=== PATIENT | female | born 1950 | race Caucasian/White ===

== ENCOUNTER 2017-05-10 17:53 | Inpatient (IN) | payer OTHER ==
[~2017-05-10] VITALS: Ht 157.5 cm; Wt 54.4 kg
[2017-05-10] MEDS ORDERED: ALBUTEROL SULFATE 0.083% 2.5 MG/3 ML INH IH ONE (18:59)
[2017-05-10] MEDS ORDERED: MORPHINE SULFATE 4 MG/1ML SYG ONE (20:23)
[2017-05-11] MEDS ORDERED: ACETAMINOPHEN 325 MG TAB PO PRN (02:45)
[2017-05-11] MEDS ORDERED: ACETAMINOPHEN-CODEINE 300/30MG TAB PO PRN (02:45)
[2017-05-11] MEDS ORDERED: ONDANSETRON HCL 4 MG/2 ML VIAL IV PRN (02:45)
[2017-05-11] MEDS ORDERED: HYDRALAZINE HCL 20 MG/ML VIAL IV PRN (02:45)
[2017-05-11 03:00] VITALS: BP 117/68
[2017-05-11] MEDS ORDERED: MORPHINE SULFATE 4 MG/1ML SYG IVP PRN (05:00)
[2017-05-11 08:10] VITALS: BP 139/71
[2017-05-11] MEDS: FAMOTIDINE 20MG TAB 20 MG TAB PO SCH ×2 (08:32→20:38)
[2017-05-11 11:24] VITALS: BP 117/61
[2017-05-11] MEDS ORDERED: LEVO25TA54 PO (13:12)
[2017-05-11] MEDS ORDERED: CALC560O TP (13:12)
[2017-05-11] MEDS ORDERED: ASEN5TAB8 SL (13:12)
[2017-05-11 17:00] VITALS: BP 131/79
[2017-05-11 21:04] VITALS: BP 126/78
[2017-05-11] MEDS: CEFAZOLIN SODIUM 1 GM VIAL IV SCH (21:58)
[2017-05-12] VITALS (26 sets, daily range): BP systolic 93–149; BP diastolic 42–85
[2017-05-12 05:03] LABS: HEMATOCRIT 37.8 % (36-48); MEAN CORPUSCULAR HEMOGLOBIN 31.8 pg (27.0-33.0); MEAN CORPUSCULAR HGB CONC 34.4 g/dL (32.0-36.0); MEAN CORPUSCULAR VOLUME 92.3 fL (79-99); PLATELET COUNT (AUTO) 237 K/uL (130-400); RED CELL DISTRIBUTION WIDTH 13.1 % (11.0-15.5); WHITE BLOOD COUNT (AUTO) 12.1 K/uL (4.8-10.8)
[2017-05-12 05:16] LABS: CREATININE 0.9 mg/dL (0.5-1.5); POTASSIUM 3.7 mmol/L (3.5-5.1)
[2017-05-12 05:44] LABS: INR 0.92 (0.85-1.15); PARTIAL THROMBOPLASTIN TIME 25.8 SEC (26.3-35.5); PROTHROMBIN TIME 9.7 SEC (9.6-11.6)
[2017-05-12] MEDS: CEFAZOLIN SODIUM 1 GM VIAL IV SCH ×4 (06:10→22:15)
[2017-05-12] MEDS: FAMOTIDINE 20MG TAB 20 MG TAB PO SCH ×2 (07:51→22:16)
[2017-05-12] MEDS: DEXTROSE 5 %-0.45 % NACL 1,000 ML IV SCH ×2 (09:25→22:05)
[2017-05-12] MEDS ORDERED: GLYCOPYRROLATE 0.2 MG/ML 5 ML VIAL ONE (14:03)
[2017-05-12] MEDS ORDERED: MIDAZOLAM HCL 1 MG/ML 2ML VIAL ONE (14:03)
[2017-05-12] MEDS ORDERED: SUCCINYLCHOLINE 200MG/10ML SYR ONE (14:03)
[2017-05-12] MEDS ORDERED: DEXAMETHASONE SOD PHOSPHATE 10MG/ML 1ML VIAL ONE (14:03)
[2017-05-12] MEDS ORDERED: ONDANSETRON HCL 4 MG/2 ML VIAL ONE ×2 (14:03→17:16)
[2017-05-12] MEDS ORDERED: PROPOFOL 10 MG/ML 20ML VIAL IV ONE (14:03)
[2017-05-12] MEDS ORDERED: LIDOCAINE PF 2% 5ML ABBOJECT ONE (14:03)
[2017-05-12] MEDS ORDERED: FENTANYL CITRATE PF 50 MCG/1 ML 2ML VIAL ONE ×3 (14:04→15:49)
[2017-05-13] VITALS: BP 137/66
[2017-05-13 04:00] VITALS: BP 130/71
[2017-05-13] MEDS: DEXTROSE 5 %-0.45 % NACL 1,000 ML IV SCH (05:36)
[2017-05-13] MEDS: CEFAZOLIN SODIUM 1 GM VIAL IV SCH (05:38)
[2017-05-13] MEDS ORDERED: LEVOTHYROXINE 25 MCG TABLET PO SCH (06:30)
[2017-05-13 07:42] VITALS: BP 127/60
[2017-05-13] MEDS: FAMOTIDINE 20MG TAB 20 MG TAB PO SCH (08:30)
[2017-05-13 11:28] VITALS: BP 115/50
== END 2017-05-13 15:00 | disposition home or self-care (01) | DRG 489 ==
LOC: EDH 17:53 → EDHIP 21:53 → OBSVTOIN 21:53 → 4AH 22:58
PROVIDERS: ADMIT Family Medicine; ATTEND Family Medicine
PROC: 0QSD04Z Reposition Right Patella with Internal Fixation Device, Open Approach (ICD-10-PCS; principal; 2017-05-12 15:07)
PROC: 0S9C0ZZ Drainage of Right Knee Joint, Open Approach (ICD-10-PCS; 2017-05-12 15:07)
DX: S82.001B Unspecified fracture of right patella, initial encounter for open fracture type I or II (principal); F20.9 Schizophrenia, unspecified; W01.0XXA Fall on same level from slipping, tripping and stumbling without subsequent striking against object, initial encounter; E03.9 Hypothyroidism, unspecified; L40.9 Psoriasis, unspecified; Y93.89 Activity, other specified; Y92.89 Other specified places as the place of occurrence of the external cause; Y99.8 Other external cause status; Z88.2 Allergy status to sulfonamides
CPT/HCPCS: 36415; 71045; 73560; 73562; 76000; 80048; 85027; 85610; 85730; 93005; 94640; 97039; A4218; J0330; J0690; J1100; J2001; J2250; J2270; J2405; J2704; J3010; J3490; J7030; J7042; J7120

== ENCOUNTER 2017-05-16 10:49 | Inpatient (IN) | payer OTHER ==
[~2017-05-16] VITALS: Ht 157.5 cm; Wt 54.4 kg
[2017-05-16] VITALS (17 sets, daily range): BP systolic 123–172; BP diastolic 66–87
[~2017-05-16 10:49] MED LIST: ASEN5TAB8 SL; CALC560O TP; LEVO25TA54 PO
[2017-05-16 13:55] LABS: BASOPHILS % (AUTO) 0.5 % (0.0-5.0); EOSINOPHILS % (AUTO) 0.3 % (0.0-8.0); HEMATOCRIT 34.1 % (36-48); LYMPHOCYTES % (AUTO) 14.9 % (21.0-51.0); MEAN CORPUSCULAR HEMOGLOBIN 31.4 pg (27.0-33.0); MEAN CORPUSCULAR HGB CONC 34.1 g/dL (32.0-36.0); MEAN CORPUSCULAR VOLUME 92.3 fL (79-99); MONOCYTES % (AUTO) 7.8 % (3.0-13.0); NEUTROPHILS % (AUTO) 76.5 % (40.0-77.0); PLATELET COUNT (AUTO) 347 K/uL (130-400); RED BLOOD CELL COUNT(AUTO) 3.69 MIL/uL (4.00-5.50); RED CELL DISTRIBUTION WIDTH 12.7 % (11.0-15.5); WHITE BLOOD COUNT (AUTO) 12.9 K/uL (4.8-10.8)
[2017-05-16 14:11] LABS: ALBUMIN 3.2 g/dL (3.5-5.0); CREATININE 0.8 mg/dL (0.5-1.5); INR 0.93 (0.85-1.15); PARTIAL THROMBOPLASTIN TIME 27.3 SEC (26.3-35.5); PROTHROMBIN TIME 9.8 SEC (9.6-11.6); TOTAL PROTEIN, SERUM 7.3 g/dL (6.0-8.3)
[2017-05-16 14:16] LABS: POTASSIUM 2.9 mmol/L (3.5-5.1)
[2017-05-16] MEDS: SODIUM CHLORIDE 0.9% 1000ML 1,000 ML IV SCH ×3 (14:28→23:24)
[2017-05-16] MEDS ORDERED: GUAIFENESIN-DM 200/20 MG 10 ML PO PRN (14:30)
[2017-05-16] MEDS ORDERED: ACETAMINOPHEN-CODEINE 300/30MG TAB PO PRN (14:30)
[2017-05-16] MEDS ORDERED: VANCOMYCIN 1GM+NS 250ML 250 ML IV SCH (14:30)
[2017-05-16] MEDS ORDERED: ONDANSETRON HCL 4 MG/2 ML VIAL IV PRN (14:30)
[2017-05-16] MEDS ORDERED: LACTULOSE 20 GM/30 ML UDCUP PO PRN (14:30)
[2017-05-16] MEDS ORDERED: ACETAMINOPHEN 325 MG TAB PO PRN (14:30)
[2017-05-16] MEDS ORDERED: VANCOMYCIN PROTOCOL PER PHARMACY IV PRN (14:30)
[2017-05-16] MEDS ORDERED: HYDRALAZINE HCL 20 MG/ML VIAL IV PRN (14:30)
[2017-05-16] MEDS ORDERED: POTASSIUM CHLORIDE 20MEQ/100ML 100 ML IV ONE (15:16)
[2017-05-16] MEDS ORDERED: LIDOCAINE HCL-MPF 1% 2ML VIAL ONE (16:17)
[2017-05-16] MEDS ORDERED: DEXAMETHASONE SOD PHOSPHATE 10MG/ML 1ML VIAL ONE (17:06)
[2017-05-16] MEDS ORDERED: LIDOCAINE PF 2% 5ML ABBOJECT ONE (17:06)
[2017-05-16] MEDS ORDERED: MIDAZOLAM HCL 1 MG/ML 2ML VIAL ONE (17:06)
[2017-05-16] MEDS ORDERED: PROPOFOL 10 MG/ML 20ML VIAL IV ONE (17:06)
[2017-05-16] MEDS ORDERED: GLYCOPYRROLATE 0.2 MG/ML 5 ML VIAL ONE (17:06)
[2017-05-16] MEDS ORDERED: ONDANSETRON HCL 4 MG/2 ML VIAL ONE (17:06)
[2017-05-16] MEDS ORDERED: FENTANYL CITRATE PF 50 MCG/1 ML 2ML VIAL ONE (17:07)
[2017-05-16] MEDS ORDERED: CEFAZOLIN SODIUM 1 GM VIAL ONE (17:07)
[2017-05-16] MEDS: IPRATROPIUM/ALBUTEROL SULFATE 3 ML SOLUTION IH SCH ×2 (17:48→23:09)
[2017-05-16] MEDS ORDERED: ROPIVACAINE 0.5% 5MG/ML 30ML IJ ONE (19:38)
[2017-05-16] MEDS ORDERED: MEPERIDINE-PF 50 MG/ML SYG ONE (20:15)
[2017-05-16] MEDS ORDERED: FAMOTIDINE/PF 20 MG/2 ML VIAL IV SCH (21:00)
[2017-05-16] MEDS ORDERED: NS-20 MEQ KCL 1000ML 1,000 ML IV ONE (21:43)
[2017-05-16] MEDS: MORPHINE SULFATE 2 MG/ML 1ML SYG IV PRN (21:48)
[2017-05-16] MEDS: NS-20 MEQ KCL 1000ML 1,000 ML IV SCH (21:48)
[2017-05-16] MEDS ORDERED: HYDROMORPHONE 1 MG/1 ML AMP ONE (23:42)
[2017-05-16] MEDS ORDERED: HYDROMORPHONE 1 MG/1 ML AMP IVP ONE (23:45)
[2017-05-17] VITALS (7 sets, daily range): BP systolic 122–154; BP diastolic 61–76
[2017-05-17] MEDS: CEFAZOLIN 2GM / 50 ML 50 ML IV SCH ×2 (01:00→09:00)
[2017-05-17] MEDS ORDERED: CEFAZOLIN SODIUM 1 GM VIAL ONE ×2 (01:30→09:39)
[2017-05-17] MEDS: IPRATROPIUM/ALBUTEROL SULFATE 3 ML SOLUTION IH SCH ×3 (04:51→18:59)
[2017-05-17] MEDS: LEVOTHYROXINE 25 MCG TABLET PO SCH (07:44)
[2017-05-17] MEDS ORDERED: LIDOCAINE HCL-MPF 1% 2ML VIAL IVP PRN (07:45)
[2017-05-17] MEDS ORDERED: POTASSIUM CHLORIDE 20 MEQ ERTAB PO PRN (07:45)
[2017-05-17] MEDS ORDERED: POTASSIUM CHLORIDE 10% ELIXIR 20 MEQ/15 ML UDCUP PO PRN (07:45)
[2017-05-17] MEDS ORDERED: POTASSIUM CHLORIDE 20MEQ/100ML 100 ML IV PRN (07:45)
[2017-05-17] MEDS ORDERED: VANCOMYCIN 0.75 GM in N.S. 250 ML IV SCH (08:00)
[2017-05-17] MEDS ORDERED: FAMOTIDINE 20MG TAB 20 MG TAB ONE (08:23)
[2017-05-17] MEDS: MORPHINE SULFATE 2 MG/ML 1ML SYG IV PRN (08:26)
[2017-05-17] MEDS: ENOXAPARIN SODIUM 40 MG/0.4 ML SYRINGE SQ SCH (08:27)
[2017-05-17 08:39] LABS: HEMATOCRIT 29.5 % (36-48); MEAN CORPUSCULAR HEMOGLOBIN 32.1 pg (27.0-33.0); MEAN CORPUSCULAR HGB CONC 34.8 g/dL (32.0-36.0); PLATELET COUNT (AUTO) 324 K/uL (130-400); WHITE BLOOD COUNT (AUTO) 12.4 K/uL (4.8-10.8)
[2017-05-17] MEDS: FAMOTIDINE 20MG TAB 20 MG TAB PO SCH ×2 (09:00→21:41)
[2017-05-17 09:07] LABS: CREATININE 0.8 mg/dL (0.5-1.5); POTASSIUM 3.9 mmol/L (3.5-5.1)
[2017-05-17] MEDS: NS-20 MEQ KCL 1000ML 1,000 ML IV SCH ×2 (09:45→22:30)
[2017-05-17] MEDS ORDERED: CEFAZOLIN SODIUM 1 GM VIAL IVP SCH (14:00)
[2017-05-18] VITALS: BP 149/68
[2017-05-18] MEDS: IPRATROPIUM/ALBUTEROL SULFATE 3 ML SOLUTION IH SCH ×5 (00:17→23:47)
[2017-05-18] MEDS ORDERED: CEFAZOLIN SODIUM 1 GM VIAL IVP SCH (01:00)
[2017-05-18 04:00] VITALS: BP 123/66
[2017-05-18] MEDS: LEVOTHYROXINE 25 MCG TABLET PO SCH (06:46)
[2017-05-18 08:18] VITALS: BP 120/67
[2017-05-18] MEDS: FAMOTIDINE 20MG TAB 20 MG TAB PO SCH ×2 (08:20→21:21)
[2017-05-18] MEDS: ENOXAPARIN SODIUM 40 MG/0.4 ML SYRINGE SQ SCH (08:21)
[2017-05-18 11:43] VITALS: BP 117/66
[2017-05-18 16:40] VITALS: BP 129/63
[2017-05-18 20:00] VITALS: BP 129/64
[2017-05-19] VITALS (9 sets, daily range): BP systolic 110–136; BP diastolic 52–70
[2017-05-19] MEDS: LEVOTHYROXINE 25 MCG TABLET PO SCH (06:34)
[2017-05-19] MEDS: IPRATROPIUM/ALBUTEROL SULFATE 3 ML SOLUTION IH SCH ×3 (06:46→19:18)
[2017-05-19] MEDS: ENOXAPARIN SODIUM 40 MG/0.4 ML SYRINGE SQ SCH (09:42)
[2017-05-19] MEDS: FAMOTIDINE 20MG TAB 20 MG TAB PO SCH ×2 (09:42→20:11)
[2017-05-20] MEDS: IPRATROPIUM/ALBUTEROL SULFATE 3 ML SOLUTION IH SCH ×5 (00:44→23:32)
[2017-05-20 04:59] VITALS: BP 118/57
[2017-05-20] MEDS: LEVOTHYROXINE 25 MCG TABLET PO SCH (06:32)
[2017-05-20 07:54] VITALS: BP 129/69
[2017-05-20] MEDS: FAMOTIDINE 20MG TAB 20 MG TAB PO SCH ×2 (07:55→20:27)
[2017-05-20] MEDS: ENOXAPARIN SODIUM 40 MG/0.4 ML SYRINGE SQ SCH (07:56)
[2017-05-20 11:18] VITALS: BP 111/64
[2017-05-20 17:21] VITALS: BP 130/62
[2017-05-20 20:26] VITALS: BP 129/70
[2017-05-20 23:30] VITALS: BP 136/77
[2017-05-21 05:06] VITALS: BP 125/64
[2017-05-21] MEDS: IPRATROPIUM/ALBUTEROL SULFATE 3 ML SOLUTION IH SCH ×4 (06:10→23:56)
[2017-05-21] MEDS: LEVOTHYROXINE 25 MCG TABLET PO SCH (06:26)
[2017-05-21 07:30] VITALS: BP 118/68
[2017-05-21] MEDS: FAMOTIDINE 20MG TAB 20 MG TAB PO SCH ×2 (09:22→21:23)
[2017-05-21] MEDS: ENOXAPARIN SODIUM 40 MG/0.4 ML SYRINGE SQ SCH (09:23)
[2017-05-21 11:00] VITALS: BP 106/65
[2017-05-21 16:00] VITALS: BP 112/61
[2017-05-21 19:56] VITALS: BP 129/59
[2017-05-21 23:46] VITALS: BP 125/61
[2017-05-22 04:17] VITALS: BP 127/65
[2017-05-22] MEDS: LEVOTHYROXINE 25 MCG TABLET PO SCH (05:25)
[2017-05-22] MEDS: IPRATROPIUM/ALBUTEROL SULFATE 3 ML SOLUTION IH SCH ×2 (06:50→11:10)
[2017-05-22 07:00] VITALS: BP 118/54
[2017-05-22] MEDS: FAMOTIDINE 20MG TAB 20 MG TAB PO SCH ×2 (07:39→19:42)
[2017-05-22] MEDS: ENOXAPARIN SODIUM 40 MG/0.4 ML SYRINGE SQ SCH (07:40)
[2017-05-22 11:00] VITALS: BP 100/56
[2017-05-22 15:18] VITALS: BP 127/75
[2017-05-22 20:00] VITALS: BP 119/66
[2017-05-22 23:58] VITALS: BP 120/64
[2017-05-23 04:00] VITALS: BP 118/64
[2017-05-23] MEDS: LEVOTHYROXINE 25 MCG TABLET PO SCH (04:45)
[2017-05-23 05:26] LABS: BASOPHILS % (AUTO) 1.2 % (0.0-5.0); HEMATOCRIT 30.8 % (36-48); LYMPHOCYTES % (AUTO) 17.6 % (21.0-51.0); MEAN CORPUSCULAR HEMOGLOBIN 33.6 pg (27.0-33.0); MEAN CORPUSCULAR HGB CONC 35.4 g/dL (32.0-36.0); MONOCYTES % (AUTO) 11.5 % (3.0-13.0); NEUTROPHILS % (AUTO) 67.7 % (40.0-77.0); NUCLEATED RED BLOOD CELLS 0.1 % (0.0-0.19); PLATELET COUNT (AUTO) 473 K/uL (130-400); RED BLOOD CELL COUNT(AUTO) 3.24 MIL/uL (4.00-5.50); RED CELL DISTRIBUTION WIDTH 13.5 % (11.0-15.5); WHITE BLOOD COUNT (AUTO) 11.4 K/uL (4.8-10.8)
[2017-05-23 05:32] LABS: CREATININE 0.8 mg/dL (0.5-1.5); POTASSIUM 4.1 mmol/L (3.5-5.1)
[2017-05-23 07:00] VITALS: BP 128/70
[2017-05-23] MEDS: ENOXAPARIN SODIUM 40 MG/0.4 ML SYRINGE SQ SCH (08:05)
[2017-05-23] MEDS: FAMOTIDINE 20MG TAB 20 MG TAB PO SCH ×2 (08:05→20:50)
[2017-05-23 11:14] VITALS: BP 119/61
[2017-05-23 15:09] VITALS: BP 138/53
[2017-05-23 20:00] VITALS: BP 121/64
[2017-05-24] VITALS: BP 119/65
[2017-05-24 04:00] VITALS: BP 121/63
[2017-05-24] MEDS: LEVOTHYROXINE 25 MCG TABLET PO SCH (06:34)
[2017-05-24 08:16] VITALS: BP 129/74
[2017-05-24] MEDS: FAMOTIDINE 20MG TAB 20 MG TAB PO SCH ×2 (08:56→20:35)
[2017-05-24] MEDS: ENOXAPARIN SODIUM 40 MG/0.4 ML SYRINGE SQ SCH (08:56)
[2017-05-24 11:11] VITALS: BP 114/71
[2017-05-24 17:08] VITALS: BP 137/70
[2017-05-24 19:33] VITALS: BP 126/66
[2017-05-25 00:18] VITALS: BP 125/61
[2017-05-25 04:43] VITALS: BP 113/57
[2017-05-25] MEDS: LEVOTHYROXINE 25 MCG TABLET PO SCH (06:30)
[2017-05-25 08:15] VITALS: BP 139/67
[2017-05-25] MEDS ORDERED: ENOXAPARIN SODIUM 40 MG/0.4 ML SYRINGE SQ ONE (08:15)
[2017-05-25] MEDS: FAMOTIDINE 20MG TAB 20 MG TAB PO SCH ×2 (08:32→20:31)
[2017-05-25] MEDS: ENOXAPARIN SODIUM 40 MG/0.4 ML SYRINGE SQ SCH (08:33)
[2017-05-25 12:02] VITALS: BP 113/62
[2017-05-25] MEDS ORDERED: ACET1TAB12 PO (13:34)
[2017-05-25 17:11] VITALS: BP 120/68
[2017-05-25 20:25] VITALS: BP 124/82
[2017-05-26 00:35] VITALS: BP 127/66
== END 2017-05-26 03:10 | disposition short-term general hospital (02) | DRG 496 ==
LOC: EDH 10:49 → EDHIP 14:28 → 4AH 20:52
PROVIDERS: ADMIT Family Medicine; ATTEND Family Medicine
PROC: 0QW Lower Bones, Revision (ICD-10-PCS; principal; 2017-05-16 17:10)
DX: T84.83XA Hemorrhage due to internal orthopedic prosthetic devices, implants and grafts, initial encounter (principal); E44.1 Mild protein-calorie malnutrition; W01.0XXA Fall on same level from slipping, tripping and stumbling without subsequent striking against object, initial encounter; F20.9 Schizophrenia, unspecified; E03.9 Hypothyroidism, unspecified; K59.00 Constipation, unspecified; L89.90 Pressure ulcer of unspecified site, unspecified stage; M81.0 Age-related osteoporosis without current pathological fracture; Y83.8 Other surgical procedures as the cause of abnormal reaction of the patient, or of later complication, without mention of misadventure at the time of the procedure; Y79.1 Therapeutic (nonsurgical) and rehabilitative orthopedic devices associated with adverse incidents; Y93.89 Activity, other specified; Y92.89 Other specified places as the place of occurrence of the external cause; Y99.8 Other external cause status; Z68.21 Body mass index [BMI] 21.0-21.9, adult; Z98.51 Tubal ligation status; Z88.2 Allergy status to sulfonamides
CPT/HCPCS: 36415; 73560; 73562; 80048; 80053; 83735; 84132; 85025; 85027; 85610; 85730; 86850; 86900; 86901; 87070; 87071; 87076; 87205; 94640; 94664; 97039; A4218; A4344; J0690; J1100; J1170; J1650; J2001; J2175; J2250; J2405; J2704; J2795; J3010; J3370; J3480; J3490; J7030

== ENCOUNTER 2025-03-17 14:27 | Emergency (ER) | payer OTHER ==
[~2025-03-17] VITALS: Ht 154.9 cm; Wt 56.7 kg
[~2025-03-17 14:27] MED LIST changes: +ACET1TAB12 PO
[2025-03-17 14:33] VITALS: BP 135/65; PULSE 73; RESP 20; TEMP 99; O2SAT 99
--- NOTE | 2025-03-17 14:33 | NUR ---
PATIENT IN ROOM
--- NOTE | 2025-03-17 16:22 | EKG ---
[facility] Test Date: 2025-03-17 Test Time: 16:16:18 Pat Name: AIME BETANCUR Department: 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
--- NOTE | 2025-03-17 16:42 | HMCIMG ---
EXAM CR right humerus, 3 views. CLINICAL HISTORY Pain. TECHNIQUE Multiple radiographic views of the right humerus. COMPARISON None. FINDINGS Bones There is internal plate and screw fixation across a healed fracture of the proximal humeral shaft at the level of the surgical neck, with good alignment of the fracture fragments and no evidence of hardware loosening or failure. No acute fracture or aggressive appearing osseous lesion is identified. Joints The visualized shoulder and elbow joint relationships are maintained without dislocation. The joint spaces are preserved. Soft tissues The soft tissues are unremarkable without abnormal soft tissue gas or focal swelling. IMPRESSION * Status post internal plate and screw fixation of a healed proximal humeral shaft/surgical neck fracture with good alignment and no acute hardware complication. * No acute osseous abnormality. /[place]
--- NOTE | 2025-03-17 16:43 | HMCIMG ---
EXAM CR right foot, 3 views. CLINICAL HISTORY Pain. TECHNIQUE Multiple radiographic views of the right foot. COMPARISON None. FINDINGS Bones No acute fracture or aggressive appearing osseous lesion is identified. Osseous alignment of the visualized right foot is maintained. Joints The joint spaces are preserved without significant degenerative change. No dislocation is seen. Soft tissues Soft tissue swelling is noted involving the distal leg, ankle, and foot region. Multiple lobulated calcific bodies are seen along the posterior aspect of the distal leg in the region of the Achilles tendon, compatible with calcific change or ossification within the tendo-Achilles. No radiopaque foreign body is identified. IMPRESSION * Soft tissue swelling involving the distal leg, ankle, and foot. * Multiple lobulated calcific bodies along the posterior distal leg in the region of the Achilles tendon, compatible with calcific or ossific change within the tendo-Achilles. * No acute osseous abnormality. /[place]
--- NOTE | 2025-03-17 16:44 | HMCIMG ---
EXAM CR right hip, 4 views. CLINICAL HISTORY Pain. TECHNIQUE Multiple frontal and lateral radiographs of the right hip and proximal femur. COMPARISON None. FINDINGS Bones There is an intramedullary nail with dynamic hip screw fixation traversing a healed intertrochanteric fracture of the right proximal femur, in satisfactory alignment without evidence of acute hardware complication or new fracture. No acute fracture or aggressive appearing osseous lesion is identified. Joints There is bilateral hip joint osteoarthritis, which is moderate to severe on the right and mild to moderate on the left, characterized by joint space narrowing and osteophytosis corresponding to the respective degrees of severity. No hip joint dislocation is seen. Soft tissues The soft tissues are unremarkable without abnormal soft tissue gas or focal swelling. IMPRESSION * Status post intramedullary nail and dynamic hip screw fixation of a healed right intertrochanteric femur fracture without acute hardware complication or new fracture. * Bilateral hip osteoarthritis, moderate to severe on the right and mild to moderate on the left. /[place]
--- NOTE | 2025-03-17 17:25 | ERN ---
ED Note History of Present Illness Stated Complaint: RT HIP PAIN, RT FOOT PAIN, AND LT SHOULDER PAIN Chief Complaint: Mechanical Fall Time Seen by MD: 14:29 Time Seen by Midlevel: 14:29 Dictation: The patient is a 74-year-old female with a history of cerebral palsy, right hip replacement who presents to the emergency department with complaints of right hip pain, right foot pain, left upper arm pain after an accidental trip and fall on Wednesday. Patient reports that she needed to use the bathroom but she did not want to use her walker so she used her friend's cane instead which had low stability causing her to fall. Reports she landed on her right side. Patient denies any head trauma, denies any LOC, denies any nausea or vomiting, denies any neck pain, denies any chest pain, denies any back pain, denies any other injuries from the fall. Reports that the next day she was able to ambulate but then after that she started with more pain. Patient reports she walks with a walker. Allergies: Coded Allergies: Sulfa (Sulfonamide Antibiotics) (Unverified Allergy, Unknown, 05/11/17) Home Meds Active Scripts Acetaminophen with Codeine (Tylenol with Codeine #3 Tablet) 1 Each Tablet, 1-2 TAB PO Q6H PRN for PAIN for 3 Days, TAB Prov:NAYLA HAQ [facility] 05/25/17 Reported Medications Levothyroxine Sodium (Levothyroxine Sodium) 25 Mcg Tablet, 25 MCG PO DAILY, TAB 05/11/17 Calcipotriene (Dovonex 0.005% Oint) 1 Appl/Gm Oint, 1 APPL TP AD, APPL 05/11/17 Asenapine Maleate (Saphris) 5 Mg Tab.subl, 5 MG SL BID, TAB.SL 05/11/17 Past Medical History Past Medical History: Anxiety, Arthritis, Schizophrenia, Other Additional Past Medical Hx: CEREBRAL PALSY; SCOLIOSIS Surgical History: Other RN Note Reviewed/Agreed w/PFSH: Yes Review of System Dictation Constitutional: Negative for fever,chills, and weight loss Eyes: Negative for injury, pain,redness, and discharge ENT: Negative for injury,pain or swelling Cardiovascular: Negative for chest pain, palpitations, and edema Respiratory: Negative for shortness of breath, cough, and wheezing, Abdomen/GI: Negative for abdominal pain, nausea, vomiting, diarrhea, and constipation Back: Negative for injury and pain : Negative for injury, bleeding and discharge MS/Extremity: Positive for right hip pain, left upper arm pain, right foot pain Skin: Negative for rash, and discoloration Neuro: Negative for headache, weakness, numbness, tingling, and seizure Psych: Negative for suicide ideation, homicidal ideation, and hallucinations Initial Vital Sign VS Vital Signs Date Time Temp Pulse Resp B/P (MAP) Pulse Ox O2 Delivery O2 Flow Rate FiO2 03/17/25 14:29 99.0 73 20 135/65 99 Room Air Physical Exam Dictation Vital Signs reviewed General Appearance: Alert, oriented x 3, no acute distress, well developed, nourished. Head and Face: non-traumatic. Eyes: PERRL, pink conjunctivas, eyelid no trauma, anterior chamber with arcus senilis. Ears: Pinnas intact and no signs of trauma or erythema ear canals clear and no discharge TM no erythema Nose: No discharge, no bleeding. Oropharynx: Mouth normal, tongue pink. pharynx clear,no erythema, tonsils no exudates, no abscesses noted, mucous membrane moist Neck: Supple, non-tender, no thyromegaly, no masses, no JVD, no bruits Breast:Deferred Chest:No tenderness, no crepitus, no paradoxical movement, no retractions Lungs:Clear, well-ventilated, symmetric, no rales, no wheezing, no rhonchi, no stridor, good breath sounds bilaterally Heart: Regular rate, regular rhythm, no murmur, no gallops Vascular: no peripheral edema, dorsalis pedis 3+ bilaterally Abdomen: Soft, positive bowel sounds, nondistended, no guarding, nontender, no rebound, no masses no hepatomegaly, no splenomegaly, no Lujan's sign, no hernias. Rectal: Deferred Genital: Deferred Neurological: Normal speech, motor function intact, sensory function intact Musculoskeletal: Neck nontender, full range of motion, back nontender, full range of motion, Extremities: nontender, full range of motion , slight tenderness to right hip, no contusions Skin: Color pink, dry, no turgor, no rash, no lacerations, no abrasions, no contusions. Lymphatic: Deferred Results (Laboratory/Radiology) Laboratory/Radiology REASON: pain ORDERING PHYSICIAN: REYNA NOBLES GANG MOWER OPERATOR PROCEDURE: HUM 2V LT - HUMERUS 2+VWS LT EXAM CR right humerus, 3 views. CLINICAL HISTORY Pain. TECHNIQUE Multiple radiographic views of the right humerus. COMPARISON None. FINDINGS Bones There is internal plate and screw fixation across a healed fracture of the proximal humeral shaft at the level of the surgical neck, with good alignment of the fracture fragments and no evidence of hardware loosening or failure. No acute fracture or aggressive appearing osseous lesion is identified. Joints The visualized shoulder and elbow joint relationships are maintained without dislocation. The joint spaces are preserved. Soft tissues The soft tissues are unremarkable without abnormal soft tissue gas or focal swelling. IMPRESSION * Status post internal plate and screw fixation of a healed proximal humeral shaft/surgical neck fracture with good alignment and no acute hardware complication. * No acute osseous abnormality. /[place] REASON: pain ORDERING PHYSICIAN: REYNA NOBLES GANG MOWER OPERATOR PROCEDURE: HIP U 2V R - HIP UNILAT 2-3VW RIGHT EXAM CR right hip, 4 views. CLINICAL HISTORY Pain. TECHNIQUE Multiple frontal and lateral radiographs of the right hip and proximal femur. COMPARISON None. FINDINGS Bones There is an intramedullary nail with dynamic hip screw fixation traversing a healed intertrochanteric fracture of the right proximal femur, in satisfactory alignment without evidence of acute hardware complication or new fracture. No acute fracture or aggressive appearing osseous lesion is identified. Joints There is bilateral hip joint osteoarthritis, which is moderate to severe on the right and mild to moderate on the left, characterized by joint space narrowing and osteophytosis corresponding to the respective degrees of severity. No hip joint dislocation is seen. Soft tissues The soft tissues are unremarkable without abnormal soft tissue gas or focal swelling. IMPRESSION * Status post intramedullary nail and dynamic hip screw fixation of a healed right intertrochanteric femur fracture without acute hardware complication or new fracture. * Bilateral hip osteoarthritis, moderate to severe on the right and mild to moderate on the left. /[place] SERVICE 1450 REASON: pain ORDERING PHYSICIAN: REYNA NBOLES GANG MOWER OPERATOR PROCEDURE: FT 3VW RT - FOOT COMP 3+VWS RT EXAM CR right foot, 3 views. CLINICAL HISTORY Pain. TECHNIQUE Multiple radiographic views of the right foot. COMPARISON None. FINDINGS Bones No acute fracture or aggressive appearing osseous lesion is identified. Osseous alignment of the visualized right foot is maintained. Joints The joint spaces are preserved without significant degenerative change. No dislocation is seen. Soft tissues Soft tissue swelling is noted involving the distal leg, ankle, and foot region. Multiple lobulated calcific bodies are seen along the posterior aspect of the distal leg in the region of the Achilles tendon, compatible with calcific change or ossification within the tendo-Achilles. No radiopaque foreign body is identified. IMPRESSION * Soft tissue swelling involving the distal leg, ankle, and foot. * Multiple lobulated calcific bodies along the posterior distal leg in the region of the Achilles tendon, compatible with calcific or ossific change within the tendo-Achilles. * No acute osseous abnormality. /[facility] Reviewed?: Yes EKG: (+) rhythm (Sinus rhythm) EKG Comment: Date:03/17/2025 Time:1450 Ventricular rate:71 VT interval:148 QRS duration:78 QT/QTc:398/444 EKG interpretation: Reviewed by ED Attending no STEMI Date:03/17/2025 Time:1616 Ventricular rate:83 VT interval:158 QRS duration:83 QT/QTc:389/458 EKG interpretation: Sinus rhythm Reviewed by ED Attending no STEMI ED Course ED Course Orders Procedure Category Date Status Time 12 Lead Ekg Tracing- EKG 03/17/25 Complete Technical 14:50 Hip Unilat 2-3vw Right RAD 03/17/25 Resulted 14:50 Foot Comp 3+Vws Rt RAD 03/17/25 Resulted 14:50 Humerus 2+Vws Lt RAD 03/17/25 Resulted 14:50 Ketorolac PHA 03/17/25 Complete Tromethamine 15mg/Ml 15:00 12 Lead Ekg Tracing- EKG 03/17/25 Logged Technical 15:47 Current Medications Medications (Trade) Dose Ordered Sig/Linda Route PRN Reason Start Time Stop Time Status Last Admin Dose Admin Ketorolac Tromethamine (toRADol) 15 mg ONCE ONCE IM 03/17/25 15:00 03/17/25 15:01 DC 03/17/25 15:08 Vital Signs Date Time Temp Pulse Resp B/P (MAP) Pulse Ox O2 Delivery O2 Flow Rate FiO2 03/17/25 14:29 99.0 73 20 135/65 99 Room Air Medical Decision Making MDM The patient is a 74-year-old female with a history of cerebral palsy, right hip replacement who presents to the emergency department with complaints of right hip pain, right foot pain, left upper arm pain after an accidental trip and fall on Wednesday. Patient reports that she needed to use the bathroom but she did not want to use her walker so she used her friend's cane instead which had low stability causing her to fall. Reports she landed on her right side. Patient denies any head trauma, denies any LOC, denies any nausea or vomiting, denies any neck pain, denies any chest pain, denies any back pain, denies any other injuries from the fall. Reports that the next day she was able to ambulate but then after that she started with more pain. Patient reports she walks with a walker. X-ray did not show any fractures or dislocations, showed osteoarthritis of bilateral hips. Patient otherwise in no acute distress, nontoxic appearance, neurovascularly intact. Patient instructed to follow up with PCP. We will refer patient to ortho. Differential diagnosis: Hip fracture, hip dislocation, hip contusion, left humerus fracture Need for hospitalization: Patient does not meet criteria for hospitalization. There are no social concerns with this patient. DX & DISP Disposition: Discharge Departure Impression: Primary Impression: Fall Additional Impression: Osteoarthritis of hips, bilateral Condition: Stable Additional Instructions: Your x-rays did not show any fractures. You do have arthritis of your hips. Please follow up with the your primary doctor in 1-2 days. You can take Tylenol at home for pain. If anything worsens please return to ER. FOLLOW-UP WITH PRIMARY CARE PROVIDER IN 1 TO 2 DAYS. TAKE MEDICATIONS DIRECTED HERE IN THE EMERGENCY ROOM. OKAY TO CONTINUE HOME MEDICATIONS UNLESS OTHERWISE DISCUSSED DURING YOUR VISIT IN THE EMERGENCY ROOM TODAY. RETURN TO YOUR NEAREST EMERGENCY ROOM IF SYMPTOMS WORSEN OR IF THERE IS NO IMPROVEMENT. CALL 911 IF YOU NEED IMMEDIATE ASSISTANCE. TAKE TYLENOL [id number] NEEDED AND IF NO CONTRAINDICATIONS ARE PRESENT. INCREASE ORAL HYDRATION. A WOUND CULTURE OR URINE CULTURE WAS ORDERED HERE IN THE EMERGENCY ROOM DEPARTMENT PLEASE FOLLOW-UP WITH PRIMARY CARE PROVIDER AND ADVISE THEM TO GET REPEAT PORTS FROM OUR FACILITY. IF YOU HAD ANY FELICIA WRAP/SPLINTS THAT WERE APPLIED HERE, PLEASE DO NOT REMOVE THEM UNTIL YOU SEE YOUR PRIMARY CARE OR SPECIALTY. Referrals: SELF,REFERRAL (PCP) CARL PEREZ DO Time of Disposition: 17:23 I have reviewed the case, and I agree with, Diagnosis and Plan REYNA NOBLES [facility] Mar 17, 2025 17:25
--- NOTE | 2025-03-17 18:23 | EKG ---
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
== END 2025-03-17 18:05 | disposition home or self-care (01) ==
LOC: EDH 14:27
DX: M16.0 Bilateral primary osteoarthritis of hip (principal); M25.512 Pain in left shoulder; M79.622 Pain in left upper arm; M79.671 Pain in right foot; F20.9 Schizophrenia, unspecified; F41.9 Anxiety disorder, unspecified; M19.90 Unspecified osteoarthritis, unspecified site; M41.9 Scoliosis, unspecified; Z88.2 Allergy status to sulfonamides; Z79.890 Hormone replacement therapy; W01.0XXA Fall on same level from slipping, tripping and stumbling without subsequent striking against object, initial encounter; Y93.89 Activity, other specified; Y92.89 Other specified places as the place of occurrence of the external cause; Y99.8 Other external cause status
CPT/HCPCS: 99284; 73630; 73060; 73502; 96372; 93005 ×2; J1885